=== PATIENT | male | born 1945 | race Caucasian/White ===

== ENCOUNTER 2018-08-01 23:25 | Emergency (ER) | payer MEDICARE, OTHER ==
[2018-08-01 23:33] VITALS: BP 126/73
[2018-08-01] MEDS ORDERED: Sodium Chloride 0.9% 10 ML Syringe FLUSH PRN (23:42)
[2018-08-01] MEDS ORDERED: Aspirin 81 MG Tab.Chew PO ONE (23:43)
[2018-08-02] MEDS ORDERED: HYDROmorphone 0.5 MG/0.5 ML SYRINGE IVPUSH ONE (00:06)
--- NOTE | 2018-08-02 00:52 | EDM.PDOC ---
ED HPI GENERAL MEDICAL PROBLEM - General Chief Complaint: Chest Pain Stated Complaint: CHEST PAIN Time Seen by Provider: 08/01/18 23:42 Source of Information: Reports: Patient, RN Notes Reviewed - History of Present Illness INITIAL COMMENTS - FREE TEXT/NARRATIVE: 72-year-old male with sudden onset of anterior chest discomfort about 45 minutes ago. Sounds like he was already in bed when he did have onset of this discomfort. With some radiation of that toward the neck. He describes this as an achy and pressure type feeling. Also does have back pain but states his neck and back has been giving him trouble for quite a long time. He does have history of acid reflux but this feels different. He has history of hyperlipidemia. He does smoke. He has not been coughing any more than usual. No recent fever chills he been feeling fine all day earlier today. Chest Pain Score (Numeric/FACES): 5 - Related Data Allergies Allergy/AdvReac Type Severity Reaction Status Date / Time pregabalin [From Lyrica] Allergy Bronchospas Verified 08/01/18 23:31 ms oxycodone HCl AdvReac Mild Dizziness Verified 08/01/18 23:31 [From OxyContin] hydrocodone AdvReac Delusions Verified 08/01/18 23:31 Home Meds: Home Meds Acetaminophen [Tylenol] 650 mg PO Q6HR 07/25/15 [History] Aspirin [Adult Low Dose Aspirin EC] 81 mg PO DAILY 07/25/15 [History] Pantoprazole [ProTONIX] 40 mg PO DAILY 07/25/15 [History] Simvastatin [Zocor] 10 mg PO DAILY 07/25/15 [History] Docusate Sodium/Sennosides [Senna Plus] 2 tab PO BID #30 tablet 07/27/15 [Rx] Past Medical History HEENT History: Reports: Impaired Vision Cardiovascular History: Reports: High Cholesterol Gastrointestinal History: Reports: GERD Other Gastrointestinal History: HX of Etoh abuse - cut away back 5 yrs. ago Other Musculoskeletal History: Lami X 5 Other Neuro History: States had a stroke 10/26/14 - Past Surgical History Cardiovascular Surgical History: Reports: Carotid Endarterectomy GI Surgical History: Reports: Appendectomy Musculoskeletal Surgical History: Reports: Shoulder Surgery Other Musculoskeletal Surgeries/Procedures:: Right hip replaced in 2007, rotator cuff Social & Family History - Family History Family Medical History: Noncontributory - Tobacco Use Smoking Status *Q: Current Every Day Smoker Years of Tobacco use: 60 Packs/Tins Daily: 0.5 - Caffeine Use Caffeine Use: Reports: Coffee - Alcohol Use Days Per Week of Alcohol Use: 3 Number of Drinks Per Day: 1 Total Drinks Per Week: 3 - Recreational Drug Use Recreational Drug Use: No ED ROS GENERAL - Review of Systems Review Of Systems: See Below Constitutional: Denies: Fever, Chills, Diaphoresis HEENT: Denies: Sinus Problem, Throat Pain Respiratory: Reports: Cough (Very occasional). Denies: Shortness of Breath, Pleuritic Chest Pain Cardiovascular: Reports: Chest Pain (Upper anterior chest), Dyspnea on Exertion (Mild, chronic) GI/Abdominal: Denies: Abdominal Pain, Nausea, Vomiting Musculoskeletal: Denies: Neck Pain, Shoulder Pain, Arm Pain, Back Pain Skin: Reports: No Symptoms. Denies: Diaphoresis Neurological: Denies: Dizziness, Numbness, Tingling, Trouble Speaking ED EXAM, GENERAL - Physical Exam Exam: See Below General Appearance: Alert, No Apparent Distress Eye Exam: Bilateral Eye: PERRL Throat/Mouth: Normal Inspection Head: Atraumatic, Other Neck: Supple, Other Respiratory/Chest: No Respiratory Distress (No JVD), Lungs Clear, Normal Breath Sounds, Chest Non-Tender Cardiovascular: Regular Rate, Rhythm GI/Abdominal: Soft, Non-Tender. No: Guarding Extremities: Normal Inspection. No: Pedal Edema, Leg Pain, Increased Warmth, Redness Neurological: Alert, Oriented, No Motor/Sensory Deficits Skin Exam: Warm, Dry, Normal Color EKG INTERPRETATION EKG Date: 08/01/18 Rhythm: NSR [place]: Normal P-Wave: Present QRS: Normal ST-T: Normal Course - Vital Signs Last Recorded V/S: Last Vital Signs Temp 97.2 F 08/01/18 23:31 Pulse 73 08/01/18 23:31 Resp 19 08/01/18 23:31 BP 126/73 08/01/18 23:31 Pulse Ox 96 08/01/18 23:31 - Orders/Labs/Meds Orders: Active Orders 24 hr Category Date Time Status Peripheral IV Care [RC] . DIRECTED Care 08/01/18 23:43 Active Chest 1V Frontal [CR] Stat Exams 09/17/18 23:42 Taken Peripheral IV Insertion Adult [OM.PC] Stat Oth 08/01/18 23:42 Ordered Labs: Laboratory Tests 08/01/18 08/01/18 08/01/18 Range/Units 23:48 23:48 23:48 WBC 6.98 (4.23-9.07) K/mm3 RBC 4.77 (4.63-6.08) M/mm3 Hgb 15.2 (13.7-17.5) gm/L Hct 45.7 (40.1-51.0) % MCV 95.8 H (79.0-92.2) fl MCH 31.9 (25.7-32.2) pg MCHC 33.3 (32.2-35.5) g/dl RDW Std Deviation 43.4 (35.1-43.9) fL Plt Count 239 (163-337) K/mm3 MPV 8.9 L (9.4-12.3) fl Neut % (Auto) 48.3 (34.0-67.9) % Lymph % (Auto) 37.4 (21.8-53.1) % Cole % (Auto) 10.2 (5.3-12.2) % Eos % (Auto) 3.6 (0.8-7.0) Baso % (Auto) 0.4 (0.1-1.2) % Neut # (Auto) 3.37 (1.78-5.38) K/mm3 Lymph # (Auto) 2.61 (1.32-3.57) K/mm3 Cole # (Auto) 0.71 (0.30-0.82) K/mm3 Eos # (Auto) 0.25 (0.04-0.54) K/mm3 Baso # (Auto) 0.03 (0.01-0.08) K/mm3 D-Dimer, Quantitative 0.52 H (0.19-0.50) mg/L Sodium 140 (136-145) mEq/L Potassium 4.0 (3.5-5.1) mEq/L Chloride 106 (98-107) mEq/L Carbon Dioxide 27 (21-32) mEq/L Anion Gap 11.0 (5-15) BUN 12 (7-18) mg/dL Creatinine 1.2 (0.7-1.3) mg/dL Est Cr Clr Drug Dosing 55.64 mL/min Estimated GFR (MDRD) 60 (>60) mL/min BUN/Creatinine Ratio 10.0 L (14-18) Glucose 93 (83-115) mg/dL Calcium 8.8 (8.5-10.1) mg/dL Total Bilirubin 0.4 (0.2-1.0) mg/dL AST 23 (15-37) U/L ALT 15 L (16-63) U/L Alkaline Phosphatase 76 (46-116) U/L Troponin I < 0.017 (0.00-0.056) ng/mL Total Protein 6.9 (6.4-8.2) g/dl Albumin 3.7 (3.4-5.0) g/dl Globulin 3.2 gm/dL Albumin/Globulin Ratio 1.2 (1-2) Meds: Medications Discontinued Medications Generic Name Dose Route Start Last Admin Trade Name Freq PRN Reason Stop Dose Admin Aspirin 324 mg 08/01/18 23:43 08/02/18 00:03 Aspirin PO 08/01/18 23:44 324 mg ONETIME ONE Administration Hydromorphone HCl 0.5 mg 08/02/18 00:06 08/02/18 00:20 Dilaudid IVPUSH 08/02/18 00:07 0.5 mg ONETIME ONE Administration Sodium Chloride 10 ml 08/01/18 23:42 08/02/18 00:03 Saline Flush FLUSH 10 ml ASDIRECTED PRN Administration Keep Vein Open - Re-Assessments/Exams Free Text/Narrative Re-Assessment/Exam: 08/02/18 01:06 Patient is resting comfortably, chest discomfort completely gone. We did give him half milligram Dilaudid shortly after I saw him about an hour ago due to severity of his discomfort at time of my evaluation. He states that did take the pain completely away. His chest x-ray looks okay. He has some mild haziness right perihilar I think that is just due to mild rotation. His EKG does not show any acute findings. Troponin did come back negative. DDimer is 0.5 which is fine for his age. Other labs and chemistries were good. Discharge instructions as documented. 08/02/18 04:14 Departure - Departure Time of Disposition: 01:06 Disposition: Home, Self-Care 01 Condition: Fair Clinical Impression: Atypical chest pain Instructions: Nonspecific Chest Pain, [id number] Referrals: PCP,None [Primary Care Provider] - Forms: ED Department Discharge Additional Instructions: Rest, increase activity slowly as tolerated, see one of your providers at [facility] either later this week or early next week, call for appointment. Try stop smoking as best he can. Return to ED as needed if symptoms worsening in any way. - My Orders Last 24 Hours: My Active Orders 08/01/18 23:42 Chest 1V Frontal [CR] Stat Peripheral IV Insertion Adult [OM.PC] Stat 08/01/18 23:43 Peripheral IV Care [RC] . DIRECTED - Assessment/Plan Last 24 Hours: My Active Orders 08/01/18 23:42 Chest 1V Frontal [CR] Stat Peripheral IV Insertion Adult [OM.PC] Stat 08/01/18 23:43 Peripheral IV Care [RC] . DIRECTED
--- NOTE | 2018-08-02 13:01 | CR ---
Chest: Frontal view of the chest was obtained. Comparison: Previous chest x-ray of 10/27/14. Heart size and mediastinum are normal. Lungs are clear. Bony structures are grossly intact. Impression: 1. Nothing acute is seen on frontal chest x-ray. Diagnostic code #1
== END 2018-08-02 01:20 | disposition home or self-care (01) ==
LOC: JD.ED 23:25
DX: R07.89 Other chest pain (principal); F17.210 Nicotine dependence, cigarettes, uncomplicated; E78.00 Pure hypercholesterolemia, unspecified; K21.9 Gastro-esophageal reflux disease without esophagitis; Z88.8 Allergy status to other drugs, medicaments and biological substances; Z79.82 Long term (current) use of aspirin; Z79.899 Other long term (current) drug therapy
CPT/HCPCS: 36415; 71045; 80053; 84484; 85025; 85379; 93005; 96374; 99285; A9270; J1170; J7050; 93010; 99284-25

== ENCOUNTER 2019-11-14 16:42 | Emergency (ER) | payer MEDICARE, OTHER ==
--- NOTE | 2019-11-14 17:05 | EDM.PDOC ---
ED HPI GENERAL MEDICAL PROBLEM - General Chief Complaint: ENT Problem Stated Complaint: NOSE BLEED Time Seen by Provider: 11/14/19 16:54 - History of Present Illness INITIAL COMMENTS - FREE TEXT/NARRATIVE: 73-year-old male presents to the emergency room with a bloody nose. This started earlier today in the morning and has been on and off. He tries to apply rolled up paper towels inside his nose. He does not have any significant bleeding going down the back of his throat. The patient is not on blood thinner initially his blood pressure was pretty high when he got here but this came down quite nicely. Patient denies any other symptoms associated with this does not have any breathing difficulties no chest pain or chest pressure. - Related Data Allergies Allergy/AdvReac Type Severity Reaction Status Date / Time pregabalin [From Lyrica] Allergy Bronchospas Verified 11/14/19 16:50 ms oxycodone HCl AdvReac Mild Dizziness Verified 11/14/19 16:50 [From OxyContin] hydrocodone AdvReac Delusions Verified 11/14/19 16:50 Home Meds: Home Meds Acetaminophen [Tylenol] 650 mg PO BID 07/25/15 [History] Aspirin [Adult Low Dose Aspirin EC] 81 mg PO DAILY 07/25/15 [History] Simvastatin [Zocor] 40 mg PO DAILY 07/25/15 [History] Celecoxib 0 mg PO DAILY 11/14/19 [History] Past Medical History HEENT History: Reports: Impaired Vision Cardiovascular History: Reports: High Cholesterol Gastrointestinal History: Reports: GERD Other Gastrointestinal History: HX of Etoh abuse - cut away back 5 yrs. ago Other Musculoskeletal History: Lami X 5 Other Neuro History: States had a stroke 10/26/14 - Past Surgical History Cardiovascular Surgical History: Reports: Carotid Endarterectomy GI Surgical History: Reports: Appendectomy Musculoskeletal Surgical History: Reports: Shoulder Surgery Other Musculoskeletal Surgeries/Procedures:: Right hip replaced in 2007, rotator cuff Social & Family History - Family History Family Medical History: Noncontributory - Tobacco Use Smoking Status *Q: Current Every Day Smoker Years of Tobacco use: 60 Packs/Tins Daily: 0.5 - Caffeine Use Caffeine Use: Reports: Coffee - Recreational Drug Use Recreational Drug Use: No ED ROS ENT - Review of Systems Review Of Systems: See Below Constitutional: Reports: No Symptoms HEENT: Reports: Nosebleed Respiratory: Reports: No Symptoms Cardiovascular: Reports: No Symptoms GI/Abdominal: Reports: No Symptoms ED EXAM, ENT - Physical Exam Exam: See Below Exam Limited By: No Limitations General Appearance: Alert, No Apparent Distress Nose: Other (Mild active bleeding on the left naris on long the septum. This was easily easily visualized and cauterized with silver nitrate) Mouth/Throat: Normal Inspection, Normal Gums, Normal Oropharynx (No blood down the posterior pharynx) Head: Atraumatic, Normocephalic Neck: Normal Inspection, Supple, Non-Tender, Full Range of Motion Respiratory/Chest: No Respiratory Distress, Lungs Clear, Normal Breath Sounds Cardiovascular: Regular Rate, Rhythm, No Edema, No Murmur ED ENT PROCEDURES - Epistaxis Procedure Indication: Epistaxis, Controlled Recent anticoagulants/antiplatlets: No Uncontrolled HTN: No Recent septal/nasal surgery: No Site of bleeding: Left Nare Clearing of clots: Patient Blew Nose Chemical cautery: Silver Nitrate Topical Complications: No Course - Vital Signs Last Recorded V/S: Last Vital Signs Temp 36.4 C 11/14/19 16:47 Pulse 70 11/14/19 17:15 Resp 16 11/14/19 17:15 BP 126/71 11/14/19 17:15 Pulse Ox 95 11/14/19 17:15 - Re-Assessments/Exams Free Text/Narrative Re-Assessment/Exam: 11/14/19 17:52 On initial evaluation I had the patient blow his nose. Examination of the left naris showed septal bleeding site. This was cauterized with silver nitrate without difficulty and the patient remained symptom-free after this. He has been up and ambulatory in the department. His blood pressure was quite elevated when he came in but it came down very nicely on its own into the 120s systolic. The patient would like to go home now and I think that is very reasonable. I explained to the patient how to blow his nose and then apply pressure to it if the bleeding returns. Departure - Departure Time of Disposition: 17:55 Disposition: Home, Self-Care 01 Clinical Impression: Epistaxis - Discharge Information Referrals: Titus Long MD [Primary Care Provider] - Forms: ED Department Discharge Additional Instructions: Return to the emergency room with any questions problems or worsening symptoms. Tonight use some of the [place] lubricant under your nose as we discussed. Tomorrow you can use some Preparation H on a Q-tip as we discussed and gently roll it over the area do not scrub the area. Do not go any deeper than the cotton tip on the Q-tip. Sepsis Event Note - Evaluation Sepsis Screening Result: No Definite Risk - Focused Exam Vital Signs: Vital Signs Temp Pulse Resp BP Pulse Ox 11/14/19 17:15 70 16 126/71 95 11/14/19 17:05 153/76 H 11/14/19 16:47 36.4 C 72 16 164/112 H 97 Date Exam was Performed: 11/14/19 Time Exam was Performed: 17:57
[2019-11-14 17:32] VITALS: BP 126/71; PULSE 70
== END 2019-11-14 18:10 | disposition home or self-care (01) ==
LOC: JD.ED 16:42
DX: R04.0 Epistaxis (principal); F17.210 Nicotine dependence, cigarettes, uncomplicated; Z79.82 Long term (current) use of aspirin; Z88.8 Allergy status to other drugs, medicaments and biological substances; Z88.5 Allergy status to narcotic agent
CPT/HCPCS: 30901; 99283

== ENCOUNTER 2019-12-12 12:18 | Emergency (ER) | payer MEDICARE, OTHER ==
[2019-12-12 12:27] VITALS: BP 140/73; PULSE 73
--- NOTE | 2019-12-12 13:17 | EDM.PDOC ---
ED HPI GENERAL MEDICAL PROBLEM - General Chief Complaint: ENT Problem Stated Complaint: NOSE BLEED Time Seen by Provider: 12/12/19 12:50 Source of Information: Reports: Patient History Limitations: Reports: No Limitations - History of Present Illness INITIAL COMMENTS - FREE TEXT/NARRATIVE: Patient is a 73-year-old male who presents with complaints of a nosebleed that started around 9:30 this morning. Patient states that he bent over while in the shower and his nose started to bleed. He states that he held pressure for about 20 minutes and the bleeding did stop. It is spotted off and on since then but this had no significant bleeding. He was seen here on 14 November for a nosebleed of the left [place]. This is the same nare that it was bleeding out of today. He is on a daily aspirin but is not on any other anticoagulants. He states that he's been using Preparation H up his nare couple times a day. - Related Data Allergies Allergy/AdvReac Type Severity Reaction Status Date / Time pregabalin [From Lyrica] Allergy Bronchospas Verified 12/12/19 12:27 ms oxycodone HCl AdvReac Mild Dizziness Verified 12/12/19 12:27 [From OxyContin] hydrocodone AdvReac Delusions Verified 12/12/19 12:27 Home Meds: Home Meds Acetaminophen [Tylenol] 650 mg PO BID 07/25/15 [History] Aspirin [Adult Low Dose Aspirin EC] 81 mg PO DAILY 07/25/15 [History] Simvastatin [Zocor] 40 mg PO DAILY 07/25/15 [History] Celecoxib 0 mg PO DAILY 11/14/19 [History] Past Medical History HEENT History: Reports: Epistaxis, Impaired Vision Cardiovascular History: Reports: High Cholesterol Respiratory History: Reports: None Gastrointestinal History: Reports: GERD Other Gastrointestinal History: HX of Etoh abuse - cut away back 5 yrs. ago Genitourinary History: Reports: None Other Musculoskeletal History: Lami X 5 Neurological History: Reports: CVA Other Neuro History: States had a stroke 10/26/14 Psychiatric History: Reports: None Endocrine/Metabolic History: Reports: None Hematologic History: Reports: None Immunologic History: Reports: None Oncologic (Cancer) History: Reports: None Dermatologic History: Reports: None - Infectious Disease History Infectious Disease History: Reports: None - Past Surgical History Cardiovascular Surgical History: Reports: Carotid Endarterectomy GI Surgical History: Reports: Appendectomy Musculoskeletal Surgical History: Reports: Shoulder Surgery Other Musculoskeletal Surgeries/Procedures:: Right hip replaced in 2008, rotator cuff Social & Family History - Family History Family Medical History: Noncontributory - Tobacco Use Smoking Status *Q: Current Every Day Smoker Years of Tobacco use: 60 Packs/Tins Daily: 0.5 - Caffeine Use Caffeine Use: Reports: Coffee - Recreational Drug Use Recreational Drug Use: No ED ROS ENT - Review of Systems Review Of Systems: Comprehensive ROS is negative, except as noted in HPI. ED EXAM, ENT - Physical Exam Exam: See Below Exam Limited By: No Limitations General Appearance: Alert, WD/WN, No Apparent Distress Nose: Normal Inspection, Normal Mucousa, No Blood. No: Active Bleeding Mouth/Throat: Normal Inspection, Normal Gums, Normal Lips, Normal Oropharynx, Normal Teeth Respiratory/Chest: No Respiratory Distress, Lungs Clear, Normal Breath Sounds, No Accessory Muscle Use, Chest Non-Tender Cardiovascular: Normal Peripheral Pulses, Regular Rate, Rhythm, No Edema, No Gallop, No JVD, No Murmur, No Rub Neurological: Alert, Oriented, CN II-XII Intact, Normal Cognition, Normal Gait, Normal Reflexes, No Motor/Sensory Deficits Psychiatric: Normal Affect, Normal Mood Skin: Warm, Dry, Intact, Normal Color, No Rash Course - Vital Signs Last Recorded V/S: Last Vital Signs Temp 98.2 F 12/12/19 12:24 Pulse 73 12/12/19 12:24 Resp 16 12/12/19 12:24 BP 140/73 12/12/19 12:24 Pulse Ox 97 12/12/19 12:24 - Orders/Labs/Meds Orders: Active Orders 24 hr Category Date Time Status Influenza Vaccine Charge [RC] .DISCHARGE Care 12/12/19 12:53 Active Meds: Medications Discontinued Medications Generic Name Dose Route Start Last Admin Trade Name Freq PRN Reason Stop Dose Admin Influenza Virus Vaccine 180 mcg 12/12/19 13:00 Fluzone High-Dose 2019-20 Syringe IM 12/12/19 13:01 .ONCE ONE - Re-Assessments/Exams Free Text/Narrative Re-Assessment/Exam: 12/12/19 13:14 Bleeding was no longer present at the time of exam. Unable to identify the source of the bleeding. Patient did blow his nose and bleeding did not resume. Discussed with him the importance of keeping the nares moist using either nasal saline or Vaseline in the nares. Discharge instructions as noted. Departure - Departure Time of Disposition: 13:15 Disposition: Home, Self-Care 01 Condition: Good Clinical Impression: Epistaxis - Discharge Information *PRESCRIPTION DRUG MONITORING PROGRAM REVIEWED*: No *COPY OF PRESCRIPTION DRUG MONITORING REPORT IN PATIENT CHAD: No Instructions: Nosebleed, Adult Referrals: PCP,Unknown [Primary Care Provider] - Additional Instructions: You were seen in the emergency Department today for a nosebleed to your left nare. The bleeding did stop prior to exam. We recommend that you use nasal saline spray as well as Vaseline or antibiotic ointment of the nose a few times a day to keep it moist. You may also purchase Afrin [id number]. If your nose should start bleeding again, spray couple sprays of Afrin up the nostril and then hold pressure. If bleeding does not stop and 50-20 minutes, please return to the emergency department. Sepsis Event Note - Evaluation Sepsis Screening Result: No Definite Risk - Focused Exam Vital Signs: Vital Signs Temp Pulse Resp BP Pulse Ox 12/12/19 12:24 98.2 F 73 16 140/73 97 Date Exam was Performed: 12/12/19 Time Exam was Performed: 13:12 - My Orders Last 24 Hours: My Active Orders 12/12/19 12:53 Influenza Vaccine Charge [RC] .DISCHARGE - Assessment/Plan Last 24 Hours: My Active Orders 12/12/19 12:53 Influenza Vaccine Charge [RC] .DISCHARGE
== END 2019-12-12 13:35 | disposition home or self-care (01) ==
LOC: JD.ED 12:18
DX: R04.0 Epistaxis (principal); E78.00 Pure hypercholesterolemia, unspecified; F17.210 Nicotine dependence, cigarettes, uncomplicated; Z86.73 Personal history of transient ischemic attack (TIA), and cerebral infarction without residual deficits; Z88.8 Allergy status to other drugs, medicaments and biological substances; Z88.5 Allergy status to narcotic agent; Z79.899 Other long term (current) drug therapy; Z23 Encounter for immunization; Z79.82 Long term (current) use of aspirin
CPT/HCPCS: 90662; 99283; G0008; 99281

== ENCOUNTER 2019-12-13 19:13 | Emergency (ER) | payer MEDICARE ==
[2019-12-13 19:35] VITALS: BP 141/61; PULSE 80
--- NOTE | 2019-12-13 20:18 | EDM.PDOC ---
ED HPI GENERAL MEDICAL PROBLEM - General Chief Complaint: ENT Problem Stated Complaint: NOSE BLEED Time Seen by Provider: 12/13/19 20:00 - History of Present Illness INITIAL COMMENTS - FREE TEXT/NARRATIVE: Patient is having recurrent bloody noses mostly out of the left side. Shortly before arrival patient had another 1. He came in but the bleeding stopped. The patient was seen here yesterday was started on Afrin spray to use on an as-needed basis he did not use at this time. Patient has no other complaints at this time. - Related Data Allergies Allergy/AdvReac Type Severity Reaction Status Date / Time pregabalin [From Lyrica] Allergy Bronchospas Verified 12/13/19 19:35 ms oxycodone HCl AdvReac Mild Dizziness Verified 12/13/19 19:35 [From OxyContin] hydrocodone AdvReac Delusions Verified 12/13/19 19:35 Home Meds: Home Meds Acetaminophen [Tylenol] 650 mg PO BID 07/25/15 [History] Aspirin [Adult Low Dose Aspirin EC] 81 mg PO DAILY 07/25/15 [History] Simvastatin [Zocor] 40 mg PO DAILY 07/25/15 [History] Celecoxib 0 mg PO DAILY 11/14/19 [History] Past Medical History HEENT History: Reports: Epistaxis, Impaired Vision Cardiovascular History: Reports: High Cholesterol Respiratory History: Reports: None Gastrointestinal History: Reports: GERD Other Gastrointestinal History: HX of Etoh abuse - cut away back 5 yrs. ago Genitourinary History: Reports: None Other Musculoskeletal History: Laminectomy X 5 Neurological History: Reports: CVA Other Neuro History: States had a stroke 10/26/14 Psychiatric History: Reports: None Endocrine/Metabolic History: Reports: None Hematologic History: Reports: None Immunologic History: Reports: None Oncologic (Cancer) History: Reports: None Dermatologic History: Reports: None - Infectious Disease History Infectious Disease History: Reports: None - Past Surgical History Cardiovascular Surgical History: Reports: Carotid Endarterectomy GI Surgical History: Reports: Appendectomy Musculoskeletal Surgical History: Reports: Shoulder Surgery Other Musculoskeletal Surgeries/Procedures:: Right hip replaced in 2007, rotator cuff Social & Family History - Family History Family Medical History: Noncontributory - Tobacco Use Smoking Status *Q: Current Every Day Smoker Years of Tobacco use: 63 Packs/Tins Daily: 0.5 - Caffeine Use Caffeine Use: Reports: Coffee - Alcohol Use Days Per Week of Alcohol Use: 4 Number of Drinks Per Day: 1 Total Drinks Per Week: 4 - Recreational Drug Use Recreational Drug Use: No ED ROS ENT - Review of Systems Review Of Systems: See Below Constitutional: Reports: No Symptoms HEENT: Reports: Nosebleed Respiratory: Reports: No Symptoms Cardiovascular: Reports: No Symptoms GI/Abdominal: Reports: No Symptoms ED EXAM, ENT - Physical Exam Exam: See Below Exam Limited By: No Limitations General Appearance: Alert, No Apparent Distress, Other (Vital signs stable afebrile) Nose: Other (No active bleeding at the site examination of the left naris shows no old blood and I cannot visualize where his bleeding came from. There is nothing to cauterize at this time. Right Nare's is unremarkable) Head: Atraumatic, Normocephalic Respiratory/Chest: No Respiratory Distress, Lungs Clear, Normal Breath Sounds Cardiovascular: Regular Rate, Rhythm, No Edema, No Murmur Course - Vital Signs Last Recorded V/S: Last Vital Signs Temp 36.3 C 12/13/19 19:32 Pulse 80 12/13/19 19:32 Resp 16 12/13/19 19:32 BP 141/61 H 12/13/19 19:32 Pulse Ox 97 12/13/19 19:32 Departure - Departure Time of Disposition: 20:20 Disposition: Home, Self-Care 01 Clinical Impression: Epistaxis - Discharge Information Referrals: PCP,Not In Area [Primary Care Provider] - Forms: ED Department Discharge Additional Instructions: Return to the emergency room with any questions problems or worsening symptoms. As we discussed if this nosebleed returns blow your nose really good apply pressure as we discussed using your fingers for 15 minutes. If the bleeding has resolved after 15 minutes below your nose and then use the spray. With the recurrent nature of these nosebleeds it is recommended that you follow- up with ENT or ear nose and throat in [place] Sepsis Event Note - Evaluation Sepsis Screening Result: No Definite Risk - Focused Exam Vital Signs: Vital Signs Temp Pulse Resp BP Pulse Ox 12/13/19 19:32 36.3 C 80 16 141/61 H 97 Date Exam was Performed: 12/13/19 Time Exam was Performed: 20:18
== END 2019-12-13 20:28 | disposition home or self-care (01) ==
LOC: JD.ED 19:13
DX: R04.0 Epistaxis (principal); E78.00 Pure hypercholesterolemia, unspecified; F17.210 Nicotine dependence, cigarettes, uncomplicated; Z86.73 Personal history of transient ischemic attack (TIA), and cerebral infarction without residual deficits; Z88.8 Allergy status to other drugs, medicaments and biological substances; Z88.5 Allergy status to narcotic agent; Z79.899 Other long term (current) drug therapy; Z79.82 Long term (current) use of aspirin
CPT/HCPCS: 99283

== ENCOUNTER 2020-01-01 08:52 | Day surgery (SDC) | payer MEDICARE, OTHER ==
[~2020-01-01 08:52] MED LIST: Lactated Ringers 1,000 ML IV SCH; Lidocaine 1%/Sod Bicarbonate in NS 8.4% 1 ML Syringe IDERM PRN; Sodium Chloride 0.9% 10 ML Syringe FLUSH PRN
--- NOTE | 2020-01-01 09:51 | PCM.PREANE ---
Preanesthetic Assessment - Anesthesia/Transfusion/Family Hx Anesthesia History: Prior Anesthesia Without Reaction Family History of Anesthesia Reaction: No Transfusion History: No Prior Transfusion(s) - Review of Systems General: No Symptoms, Other (ETOH,) Pulmonary: Shortness of Breath, Wheezing, Other (smoker, lung nodule being monitored) Cardiovascular: Other (denies any chest pain or discomfort) Gastrointestinal: Other (GERD well controlled on meds) Neurological: Difficulty Walking, Gait Disturbance, Other (chronic back pain with multiple back surgeries, goes into right leg, feels like needles in his feet) Other: Reports: None - Physical Assessment NPO Status Date: 12/31/19 NPO Status Time: 19:00 Vital Signs: Last Vital Signs Temp 36.7 C 01/01/20 09:15 Pulse 63 01/01/20 09:15 Resp 16 01/01/20 09:15 BP 130/58 L 01/01/20 09:15 Pulse Ox 97 01/01/20 09:15 Height: 1.73 m Weight: 90.718 kg ASA Class: 3 Mental Status: Alert & Oriented x3 Dentition: Reports: Dentures, Edentulous Thyro-Mental Finger Breadths: 3 Mouth Opening Finger Breadths: 3 ROM/Head Extension: Full Lungs: Clear to Auscultation, Normal Respiratory Effort Cardiovascular: Regular Rate, Regular Rhythm - Imaging/EKG Impressions: ECHO, EF 65-70% with mild aorta regurg - Allergies Allergies/Adverse Reactions: Allergies Allergy/AdvReac Type Severity Reaction Status Date / Time pregabalin [From Lyrica] Allergy Bronchospas Verified 12/13/19 19:35 ms oxycodone HCl AdvReac Mild Dizziness Verified 12/13/19 19:35 [From OxyContin] hydrocodone AdvReac Delusions Verified 12/13/19 19:35 - Blood Blood Available: No Product(s) Available: None - Anesthesia Plan Pre-Op Medication Ordered: None - Acknowledgements Anesthesia Type Planned: General Anesthesia Pt an Appropriate Candidate for the Planned Anesthesia: Yes Alternatives and Risks of Anesthesia Discussed w Pt/Guardian: Yes Pt/Guardian Understands and Agrees with Anesthesia Plan: Yes PreAnesthesia Questionnaire HEENT History: Reports: None Cardiovascular History: Reports: High Cholesterol, Other (See Below) Other Cardiovascular History: Carotid Stenosis Respiratory History: Reports: Other (See Below) Other Respiratory History: Lung nodule Gastrointestinal History: Reports: Colon Polyp, Other (See Below) Other Gastrointestinal History: Right lower quadrant pain Genitourinary History: Reports: None Musculoskeletal History: Reports: Back Pain, Chronic, Other (See Below) Other Musculoskeletal History: Degenerative joint disease, left arm fracture Neurological History: Reports: CVA Other Neuro History: States had a stroke 10/26/14 Psychiatric History: Reports: None Endocrine/Metabolic History: Reports: None Hematologic History: Reports: None Immunologic History: Reports: None Oncologic (Cancer) History: Reports: None Dermatologic History: Reports: None - Infectious Disease History Infectious Disease History: Reports: None - Past Surgical History Head Surgeries/Procedures: HEENT Surgical History: Reports: Tonsillectomy Cardiovascular Surgical History: Reports: Carotid Endarterectomy Respiratory Surgical History: Reports: None GI Surgical History: Reports: Appendectomy, Colonoscopy, EGD Female Surgical History: Male Surgical History: Reports: None Endocrine Surgical History: Reports: None Neurological Surgical History: Reports: Other (See Below) Other Neurological Surgeries/Procedures: Multiple lumbar back surgeries, patient had spinal cord stimulator two different times but both have been removed Musculoskeletal Surgical History: Reports: Other (See Below) Other Musculoskeletal Surgeries/Procedures:: Right total hip arthroplasty, bilateral shoulder surgery Oncologic Surgical History: Reports: None Dermatological Surgical History: Reports: None - SUBSTANCE USE Smoking Status *Q: Current Every Day Smoker Tobacco Use Within Last Twelve Months: Cigarettes Second Hand Smoke Exposure: No Recreational Drug Use History: No - HOME MEDS Home Medications: Home Meds Acetaminophen [Tylenol] 650 mg PO BID 07/25/15 [History] Aspirin [Adult Low Dose Aspirin EC] 81 mg PO DAILY 07/25/15 [History] Simvastatin [Zocor] 40 mg PO DAILY 07/25/15 [History] Celecoxib 0 mg PO DAILY 11/14/19 [History] - CURRENT (IN HOUSE) MEDS Current Meds: Current Medications Lactated Ringer's (Ringers, Lactated) 1,000 mls @ 125 mls/hr IV ASDIRECTED SYLVESTER Stop: 01/01/20 23:00 Last Admin: 01/01/20 09:40 Dose: 125 mls/hr Lidocaine/Sodium Bicarbonate (Buffered Lidocaine 1% In Ns 8.4%) 0.25 ml IDERM ONETIME PRN PRN Reason: Prior to IV Start Stop: 01/01/20 18:00 Last Admin: 01/01/20 09:40 Dose: 0.25 ml Sodium Chloride (Saline Flush) 10 ml FLUSH ASDIRECTED PRN PRN Reason: Keep Vein Open Stop: 01/01/20 18:00
[2020-01-01] MEDS ORDERED: Albuterol 0.083% 2.5 MG/3 ML Neb Soln ONE (09:58)
[2020-01-01] MEDS ORDERED: Albuterol 0.083% 2.5 MG/3 ML Neb Soln NEB SCH (09:59)
[2020-01-01] MEDS ORDERED: Propofol 200 MG/20 ML SDV ONE (10:01)
[2020-01-01] MEDS ORDERED: fentaNYL 250 MCG/5 ML SDV ONE (10:01)
[2020-01-01] MEDS ORDERED: ceFAZolin 1 GM Vial ONE (10:01)
[2020-01-01] MEDS ORDERED: Lactated Ringers 1,000 ML ONE (10:01)
[2020-01-01] MEDS ORDERED: Midazolam 1 MG/ML 2 ML SDV ONE (10:01)
[2020-01-01] MEDS ORDERED: Ondansetron 4 MG/2 ML SDV ONE (10:01)
[2020-01-01] MEDS ORDERED: Rocuronium 50 MG/5 ML Vial ONE (10:01)
[2020-01-01] MEDS ORDERED: Lidocaine 1% 4 ML ONE (10:01)
[2020-01-01] MEDS ORDERED: Lidocaine 1% 50 ML MDV ONE (11:11)
[2020-01-01] MEDS ORDERED: ePHEDrine Sulfate/0.9% NaCl/Pf 25 MG/5 ML SYRINGE IV ONE (11:43)
[2020-01-01] MEDS ORDERED: Bupivacaine 0.25% 10 ML SDV ONE (13:10)
[2020-01-01] MEDS ORDERED: Ketorolac 30 MG/ML SDV ONE (13:32)
--- NOTE | 2020-01-01 13:56 | PCM.POSTAN ---
POST ANESTHESIA ASSESSMENT - MENTAL STATUS Mental Status: Alert, Oriented - VITAL SIGNS Vital Signs: Last Vital Signs Temp 36.7 C 01/01/20 09:15 Pulse 63 01/01/20 09:15 Resp 16 01/01/20 09:15 BP 130/58 L 01/01/20 09:15 Pulse Ox 94 L 01/01/20 10:05 - RESPIRATORY Respiratory Status: Respiratory Rate WNL, Airway Patent, O2 Saturation Stable, Supplemental Oxygen - CARDIOVASCULAR CV Status: Pulse Rate WNL, Blood Pressure Stable - GASTROINTESTINAL GI Status: No Symptoms - PAIN Pain Score: 0 - POST OP HYDRATION Hydration Status: Adequate & Stable
[2020-01-01] MEDS ORDERED: Ondansetron 4 MG/2 ML SDV IVPUSH PRN (13:57)
[2020-01-01] MEDS ORDERED: fentaNYL 100 MCG/2 ML SDV IVPUSH PRN (13:57)
--- NOTE | 2020-01-01 14:09 | PCM48HPAN ---
Post Anesthesia Note - EVALUATION WITHIN 48HRS OF ANESTHETIC Vital Signs in Normal Range: Yes Patient Participated in Evaluation: Yes Respiratory Function Stable: Yes Airway Patent: Yes Cardiovascular Function Stable: Yes Hydration Status Stable: Yes Pain Control Satisfactory: Yes Nausea and Vomiting Control Satisfactory: Yes Mental Status Recovered: Yes Vital Signs: Last Vital Signs Temp 37.1 C 01/01/20 13:51 Pulse 86 01/01/20 13:51 Resp 15 01/01/20 13:51 BP 143/67 H 01/01/20 13:51 Pulse Ox 97 01/01/20 13:51
[2020-01-01 15:32] VITALS: BP 109/58; PULSE 65
--- NOTE | 2020-01-02 07:22 | OR ---
DATE OF OPERATION: 01/01/2020 SURGEON: Debra Castro MD PREOPERATIVE DIAGNOSIS: Right-sided inguinal hernia. POSTOPERATIVE DIAGNOSIS: Right-sided inguinal hernia. OPERATION PERFORMED: Laparoscopic right inguinal hernia repair with mesh, (transabdominal preperitoneal). ESTIMATED BLOOD LOSS: 5 mL. ANESTHESIA: General endotracheal. COMPLICATIONS: None. INDICATIONS AND CONSENT: Mr. Garza is a 74-year-old male who presented to my clinic for evaluation of right inguinal fullness and pain. The patient has had this for several months. It is causing discomfort and interfering with his daily activities. I evaluated the patient and I diagnosed him with a right-sided inguinal hernia. I offered him operative repair. We discussed both open and laparoscopic approach. I recommended laparoscopic repair. I discussed with the patient risks, benefits, and alternatives. Risks discussed including infection, bleeding, chronic groin pain, wound complications, wound infection, mesh infection, and need for further interventions. The patient understood, questions were answered, and informed consent was obtained. DESCRIPTION OF PROCEDURE: The patient was taken to the operating room, placed in supine position. Following induction of general endotracheal anesthesia, preop antibiotics were given. The patient was padded and SCDs were placed and a Gilbert catheter was placed. Then, the patient's abdomen was clipped of any hair and prepped and draped in the usual sterile fashion. Formal time-out was performed prior to the start of the procedure. We began the procedure by making a supraumbilical incision. The umbilical stalk was grasped by a Ellen clamp, elevated and a Veress needle was introduced into the abdomen. The abdomen was insufflated to 15 mmHg with CO2. Then, a 5 mm trocar was inserted in the left mid abdomen because the patient had prior laparoscopic appendectomy and wanted to look at the umbilical site before inserting a trocar at this site. Then, we looked at the Veress needle. It was clearly in the abdomen, but there were no notable injuries from Veress needle insertion. There was no injuries from trocar insertion. Then, the Veress needle was removed and a 12 mm trocar was inserted at the supraumbilical site. Then, another 5 mm trocar was placed in the right mid abdomen. At this point, the patient's position was turned into slight Trendelenburg. We clearly visualized the inguinal areas. The right inguinal area had a pantaloon hernia. The direct hernia contained a loop of bowel. The indirect hernia contained a loop of omentum. On the left side, there were no hernias. Then, decision was made to proceed with a right-sided inguinal hernia repair laparoscopically. The peritoneal flap was created. The inguinal hernias were reduced, first the direct component and then the indirect component were both reduced. The medial dissection was made all the way to the Rashard's ligament, making sure the pubic bone was clearly visible and the lateral dissection was taken down slightly below the inguinal ligament. The inguinal hernias were taken down below the hernia defects giving us about 5 cm of area to place the mesh. Then, a large 10.8 x 16.0 cm anatomic right-sided mesh. A Bard 3DMax knitted polypropylene mesh was brought into the field, opened and placed into the inguinal area and situated such that there was about 4 cm medial as well as 4 cm posterior as well as 4 cm lateral overlap around the inguinal site. Once the positioning was satisfactory, one absorbable tack was placed medially at the Rashard's ligament with AbsorbaTack and another one tack was placed laterally about the right anterior superior iliac spine to hold the mesh in place. Once this was done, the mesh appeared to be in place. The flap was reapproximated to the abdominal wall with several tacks about 1 cm from one another completely covering the mesh. When this was done, we proceeded with injection of 0.25% Marcaine in the right transversus abdominis plane, 20 mL of Marcaine were injected in this location and this marked the end of the procedure. The umbilical site was closed in 2 layers. The fascia was closed with 0 Vicryl stitches using Rigoberto- Victoriano device and skin was closed with 0 Monocryl in an interrupted fashion. Skin at the other two 5 mm trocar sites was closed with 0 Monocryl and Dermabond was applied to the incision site. This marked the end of the procedure. At the end of his procedure, instruments, sharps, and sponges were counted and found to be correct x2. The patient was awoken from general anesthesia, extubated, and taken to the PACU for further recovery. The patient will be allowed to go home today and the patient to come back to clinic in 2 weeks for postop check. In the meantime, the patient will be restricted to lift no more than 10 pounds. MMODAL /[id number]
== END 2020-01-01 15:30 | disposition home or self-care (01) ==
LOC: JD.SDS 08:52
PROVIDERS: ATTEND Surgery
DX: K40.90 Unilateral inguinal hernia, without obstruction or gangrene, not specified as recurrent (principal); M19.012 Primary osteoarthritis, left shoulder; M19.011 Primary osteoarthritis, right shoulder; E78.5 Hyperlipidemia, unspecified; F17.210 Nicotine dependence, cigarettes, uncomplicated; Z88.8 Allergy status to other drugs, medicaments and biological substances; Z88.5 Allergy status to narcotic agent; Z79.899 Other long term (current) drug therapy; Z79.82 Long term (current) use of aspirin
CPT/HCPCS: 49650; 93005; 94640; J0690; J1885; J2001; J2250; J2405; J2704; J3010; J3490; J7120

== ENCOUNTER 2022-06-19 10:15 | Emergency (ER) | payer MEDICARE, OTHER ==
[2022-06-19 10:28] VITALS: PULSE 59
[2022-06-19] MEDS ORDERED: Iopamidol 755 Mg/ML 100 ML Bottle IVPUSH ONE (11:42)
[2022-06-19] MEDS ORDERED: Sodium Chloride 0.9% 10 ML Syringe FLUSH PRN (11:42)
[2022-06-19] MEDS ORDERED: Sodium Chloride 0.9% 100 ML IV SCH (11:45)
[2022-06-19 14:09] VITALS: BP 148/65
== END 2022-06-19 14:09 | disposition home or self-care (01) ==
LOC: JD.ED 10:15
DX: R07.89 Other chest pain (principal); F17.210 Nicotine dependence, cigarettes, uncomplicated; Z88.5 Allergy status to narcotic agent; Z88.8 Allergy status to other drugs, medicaments and biological substances; Z86.73 Personal history of transient ischemic attack (TIA), and cerebral infarction without residual deficits
CPT/HCPCS: 36415; 71045; 71275; 80053; 84484; 85025; 85610; 99285; J3490; Q9967